=== PATIENT | female | born 1970 | race Caucasian/White ===

== ENCOUNTER → 2021-09-22 | Outpatient (CLI) | payer BC, OTHER ==
[~2021-09-22] MED LIST: B-12 INJECTION IM; LEVO125T PO
[2021-09-22 13:14] LABS: ABSOLUTE RETIC # 117 10e9/uL (24-90); BASOPHILS % (AUTO) 1 % (0-10); EOSINOPHILS # (AUTO) 0.1 10^3/uL (0.0-0.3); EOSINOPHILS % (AUTO) 2 % (0-10); HEMATOCRIT 43 % (35-52); HEMOGLOBIN 14.2 g/dL (11.5-16.0); LYMPHOCYTES # (AUTO) 0.9 10^3/uL (1.0-4.0); LYMPHOCYTES % (AUTO) 17 % (12-44); MEAN CORPUSCULAR HEMOGLOBIN 31 pg (25-34); MEAN CORPUSCULAR HGB CONC 33 g/dL (32-36); MEAN CORPUSCULAR VOLUME 93 fL (80-99); MEAN PLATELET VOLUME 11.3 fL (9.0-12.2); MONOCYTES # (AUTO) 0.4 10^3/uL (0.0-1.0); MONOCYTES % (AUTO) 7 % (0-12); NEUTROPHILS # (AUTO) 3.7 10^3/uL (1.8-7.8); NEUTROPHILS % (AUTO) 73 % (42-75); PLATELET COUNT 170 10^3/uL (130-400); RETICULOCYTE % 2.57 % (0.50-2.40); WHITE BLOOD COUNT 5.1 10^3/uL (4.3-11.0)
[2021-09-22 14:02] LABS: BAND NEUTROPHILS 0 %; BASOPHILS % (MANUAL) 0 %; EOSINOPHILS % (MANUAL) 3 %; LYMPHOCYTES % (MANUAL) 15 %; MONOCYTES % (MANUAL) 4 %; NEUTROPHILS % (MANUAL) 78 %; RBC MORPH NORMAL
== END ==
LOC: LAB 12:49
PROVIDERS: ATTEND Nurse Practitioner Family
DX: D64.9 Anemia, unspecified (principal); D70.9 Neutropenia, unspecified; D69.6 Thrombocytopenia, unspecified
CPT/HCPCS: 36415; 85007; 85027; 85045; 85055

== ENCOUNTER → 2022-06-09 | Outpatient (CLI) | payer BC, OTHER ==
--- NOTE | 2022-06-10 13:13 | Diagnostic Imaging Report ---
INDICATION: Routine screening. Comparison is made with prior mammogram from 06/28/2016 and 05/25/2015. 2-D and 3-D bilateral screening mammography was performed with CAD. CAD is utilized. The current study was also evaluated with a Computer Aided Detection (CAD) system. Bilateral subpectoral breast implants are noted. Implant contours remain smooth. Both breasts are heterogeneously dense, limiting the sensitivity of mammography. The parenchymal pattern is stable. No mass or malignant-appearing microcalcifications are seen. Axillae are unremarkable. IMPRESSION: BI-RADS Category 2 No mammographic features suspicious for malignancy are identified. ACR BI-RADS Category 2: Benign findings. Result letter will be mailed to the patient. Note: At least 10% of breast cancer is not imaged by mammography. Dictated by: Dictated on workstation # [id number]
== END ==
LOC: RAD 14:48
PROVIDERS: ATTEND Family Medicine
DX: Z12.31 Encounter for screening mammogram for malignant neoplasm of breast (principal)
CPT/HCPCS: 77063; 77067

== ENCOUNTER 2023-03-28 23:32 | Emergency (ER) | payer BC ==
[~2023-03-28] VITALS: Ht 170 cm; Wt 63.5 kg
[2023-03-28 23:43] VITALS: BP 111/58
--- NOTE | 2023-03-29 00:08 | ED Upper Extremity ---
General Chief Complaint: Upper Extremity Stated Complaint: RIGHT SHOULDER PAIN Nursing Triage Note: Patient ambulatory to room 07 c/o right shoulder pain x2days. Patient states "this has been happening on and off for 2 years" Pain is coming and going. Patient states she woke up tonight feeling like she was going to pass out and vomitted 1x. denies any injury. Source: patient Exam Limitations: no limitations History of Present Illness Date Seen by Provider: Mar 29, 2023 Time Seen by Provider: 00:08 Initial Comments Patient is a 52-year-old female who presents to the emergency department with a chief complaint of right shoulder pain over the last 2 days. Patient states that she has had a couple of episodes in the past of pain similar to this that has resolved on its own. She has never seen an orthopedic surgeon or had imaging of her right shoulder. Patient denies any trauma to the area. She has not done excessive heavy lifting or push pull activities. She states she is quite active on a daily basis however. She denies any temperature difference to the right and left arm. No numbness tingling or weakness to the right arm. She points to the anterior shoulder as the most prominent area of pain but states it is actually all over the shoulder joint. She has been taking 600 mg of ibuprofen every 4 hours throughout the day. No significant relief of symptoms. She states earlier this evening when she woke up she felt lightheaded due to the pain and actually had 1 episode of vomiting. She denies chest pain, shortness of breath, diaphoresis. She is a non-smoker. She takes no medications for hypertension. She has had stress test by Dr. Galindo in the past x2. Most recent was 2015 and it was normal. Onset: other (2 days) Severity: severe Pain/Injury Location: right shoulder Method of Injury: unknown Modifying Factors: Improves With Immobilization; Worse With Movement Associated Symptoms: vomiting x1 tonight Allergies and Home Medications Allergies Coded Allergies: No Known Drug Allergies (Unverified , 07/25/13) Patient Home Medication List Home Medication List Reviewed: Yes Levothyroxine Sodium (Synthroid) 125 Mcg Tablet, 1 EACH PO DAILY, (Reported) Entered as Reported by: SUNIL CABRERA on 07/25/132009 [B-12 Injection] , 2 ML IM EVERY 2 WEEKS, (Reported) Entered as Reported by: SUNIL CABRERA on 07/25/132011 Review of Systems Constitutional: see HPI Respiratory: no symptoms reported Cardiovascular: no symptoms reported Gastrointestinal: vomiting (x1) Genitourinary: no symptoms reported Musculoskeletal: joint pain (right shoulder - painful ROM all directions) Psychiatric/Neurological: No Symptoms Reported All Other Systems Reviewed Negative Unless Noted: Yes Past Umhtuho-Flopcz-Qxjvwl Hx Patient Social History Tobacco Use?: No Substance use?: No Alcohol Use?: Yes Alcohol Frequency: Several times a month Immunizations Up To Date Tetanus Booster (TDap): More than 5yrs Past Medical History Hypothyroidsim Adverse Reaction/Blood Tranf: No Physical Exam Vital Signs Vital Signs - First Documented 03/28/23 23:43 Temp 37.1 Pulse 98 Resp 16 B/P (MAP) 111/58 (75) Pulse Ox 100 O2 Delivery Room Air Capillary Refill : Less Than 3 Seconds Height, Weight, BMI Height: '" Weight: 139lbs. oz. 63.717157kw; 21.00 BMI Method:Stated General Appearance: WD/WN, no apparent distress HEENT: PERRL/EOMI Neck: non-tender, full range of motion, supple, normal inspection Cardiovascular: regular rate, rhythm Respiratory: chest non-tender, lungs clear, normal breath sounds, no respiratory distress, no accessory muscle use Shoulder: normal inspection, limited ROM (in all directions - able to only actively move about 20-30deg. Normal distal pulses and sensation. 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.), pain, soft tissue tenderness (soft tissue tenderness long head of biceps - no other discrete pont tenderness in the shoulder joint); No swelling Elbow/Forearm: normal inspection, non-tender, no evidence of injury, normal ROM, Right Wrist: Yes normal inspection, Yes non-tender, Yes no evidence of injury, Yes normal ROM Hand: normal inspection, non-tender, no evidence of injury, normal ROM, Right Neurologic/Tendon: normal sensation, normal motor functions, normal tendon functions Neurologic/Psychiatric: alert, normal mood/affect, oriented x 3 Skin: normal color, warm/dry Progress/Results/Core Measures Results/Orders My Orders Orders - ATILIO GODOY MD Shoulder, Right, 3 Views (03/29/23 00:17) Prednisone Tablet (Deltasone Tablet) (03/29/23 00:30) Hydrocodone/Apap 5/325 Tablet (Hydrocod (03/29/23 00:30) Rx-Hydrocodone/Apap 5-325 Mg (Rx-Vicodin (03/29/23 00:30) Medications Given in ED Current Medications Medications Dose Ordered Sig/Vickie Route Start Time Stop Time Status Last Admin Dose Admin Acetaminophen/ Hydrocodone Bitart 1 ea ONCE ONCE PO 03/29/23 00:30 03/29/23 00:31 DC 03/29/23 00:32 1 EA Prednisone 50 mg ONCE ONCE PO 03/29/23 00:30 03/29/23 00:31 DC 03/29/23 00:34 50 MG Vital Signs/I&O 03/28/23 23:43 Temp 37.1 Pulse 98 Resp 16 B/P (MAP) 111/58 (75) Pulse Ox 100 O2 Delivery Room Air 2 Blood Pressure Mean: 75 Departure Impression Primary Impression: Shoulder pain, acute Qualified Codes: M25.511 - Pain in right shoulder Disposition: HOME, SELF-CARE Condition: Stable Departure-Patient Inst. Decision time for Depature: 00:59 Referrals: MICHAELA HOPE MD (PCP/Family) Primary Care Physician Patient Instructions: Shoulder Pain ED Add. Discharge Instructions: You can use an ice pack to the right shoulder to help decrease inflammation. Do try and do small bits of range of motion. "Pendulum swings" where you let your arm hang from your side and move a little bit in circles. Take the prednisone "taper" as prescribed. This medication may disrupt sleep a little, because some sweating and irritability. These symptoms should be short- lived. Always try and take your prednisone with food. Hydrocodone 5 mg / 325 mg 1 tablet with 1 extra strength Tylenol every 6 hours a s needed for more severe pain. If you develop worsening pain with swelling in the shoulder joint, numbness tingling or weakness to the right arm please return to the emergency department for reevaluation. You can also try Biofreeze or Voltaren gel over the right shoulder for pain relief. I have put contact information for our orthopedic surgeon on-call, Dr. Brumfield. Please call his office for a follow-up appointment. You may require an MRI of the right shoulder. Scripts Hydrocodone/Acetaminophen (Hydrocodone-Acetamin 5-325 mg) 5 Mg-325 Mg Tablet 1 TAB PO Q6H PRN for PAIN-MODERATE (5-7), #12 TAB Prov: ATILIO GODOY MD 03/29/23 Prednisone (Prednisone) 10 Mg Tab.ds.pk 10 MG PO DAILY, #21 EA Take 6 tabs(60mg)daily,decrease by 1 tab(10MG)daily. Prov: ATILIO GODOY MD 03/29/23 Copy Copies To 1: MICHAELA HOPE MD Copies To 2: VAMSHI BRUMFIELD MD, KATHRYN M MD Mar 29, 2023 00:08
[2023-03-29] MEDS ORDERED: predniSONE 20 MG TAB PO ONE (00:30)
[2023-03-29] MEDS ORDERED: HYDROcodone/ACETAMINOPHEN 5 MG/325 MG TABLET PO ONE (00:30)
[2023-03-29] MEDS ORDERED: ACHD5005 PO (01:02)
[2023-03-29] MEDS ORDERED: PRED10TA22 PO (01:02)
--- NOTE | 2023-03-29 07:30 | Diagnostic Imaging Report ---
EXAMINATION: Right shoulder radiograph TECHNIQUE: AP, Grashey, and Y view of the right shoulder pain HISTORY: non traumatic right shoulder pain COMPARISON: None available. FINDINGS: Alignment is normal. No fracture is seen. Joint spaces are normal. IMPRESSION: 1. No fracture. Dictated by: Dictated on workstation # [id number]
== END 2023-03-29 01:13 | disposition home or self-care (01) ==
LOC: EDUNIT# 23:32 → ER 23:34
DX: M25.511 Pain in right shoulder (principal)
CPT/HCPCS: 73030; 99281

== ENCOUNTER → 2023-04-05 | Outpatient (CLI) | payer BC ==
[~2023-04-05] MED LIST changes: +ACHD5005 PO; +PRED10TA22 PO
== END ==
LOC: ORTHO 10:50
PROVIDERS: ATTEND Orthopaedic Surgery
DX: M75.101 Unspecified rotator cuff tear or rupture of right shoulder, not specified as traumatic (principal)
CPT/HCPCS: 99203